=== PATIENT | male | born 1965 | race Caucasian/White ===

== ENCOUNTER 2021-01-08 14:57 | Emergency (ER) | payer OTHER ==
[2021-01-08 16:57] LABS: Absolute Lymphocytes (CBC) 1.7 K/uL (0.7-4.9); Basophils % 0.8 % (0-1.3); Hematocrit 42.6 % (39.6-49.0); Lymphocytes % 32.7 % (15.3-44.8); RBC Red Blood Cell Count 4.38 M/uL (4.33-5.43)
[2021-01-08 17:01] LABS: Protime INR 1.01
[2021-01-08 17:09] LABS: ALT/SGPT 34 U/L (12-78); AST/SGOT 27 U/L (15-37); Albumin 3.6 g/dL (3.4-5.0); Alkaline Phosphatase 55 U/L (45-117); BUN Blood Urea Nitrogen 12 mg/dL (7-18); Bicarbonate 24 mmol/L (21-32); Bilirubin Direct 0.2 mg/dL (0-0.2); Bilirubin Total 0.7 mg/dL (0.2-1.0); Ferritin 843.3 ng/mL (26-388); Glucose Level 76 mg/dL (74-106); Potassium 4.1 mmol/L (3.5-5.1); Protein, Total 7.9 g/dL (6.4-8.2); Sodium Level 134 mmol/L (136-145); Troponin (Emerg Dept Use Only) < 0.02 ng/mL (0.0-0.045)
--- NOTE | 2021-01-08 17:13 | RAD REPORT ---
EXAM DESCRIPTION: RAD - Chest Single View - 01/08/2021 4:44 pm CLINICAL HISTORY: DYSPNEA COMPARISON: No comparisons FINDINGS: Lines: None. Lungs: No evidence of edema or pneumonia. Pleural: No significant pleural effusions or pneumothorax. Cardiac: The heart size is within normal limits. Bones: No acute fractures. Other: IMPRESSION: No acute cardiopulmonary disease.
--- NOTE | 2021-01-08 17:58 | EDPHYS ---
Physician Documentation [facility] Name: Herman Khan Age: 55 yrs Sex: Male : 1965 Arrival Date: 01/08/2021 Time: 14:59 Bed 16 Private MD: ED Physician Bridger Goodwin HPI: 01/08 17:50 This 55 yrs old Male presents to ER via Ambulatory with complaints of jr8 Breathing Difficulty, Dizziness. 17:50 This is a 55-year-old male patient that presented to the emergency room for worsening jr8 of cough and difficulty breathing. Stated that it started about 5 days ago and was put on Zithromax. Since then has not felt any better and if anything has felt worse. Denies fevers, body aches, chills.. Historical: - Allergies: 15:12 Codeine; tw2 - Home Meds: 15:12 None [Active]; tw2 - PMHx: 15:12 None; tw2 - PSHx: 15:12 Hemorrhoidectomy; melanoma cyst removed; tw2 - Immunization history:: Adult Immunizations Client reports having NOT received the Covid vaccine. - Social history:: Smoking status: Patient reports the use of cigarette tobacco products, smokes two packs cigarettes per day. ROS: 17:50 Eyes: Negative for injury, pain, redness, and discharge, ENT: Negative for injury, jr8 pain, and discharge, Neck: Negative for injury, pain, and swelling, Cardiovascular: Negative for chest pain, palpitations, and edema, Abdomen/GI: Negative for abdominal pain, nausea, vomiting, diarrhea, and constipation, Back: Negative for injury and pain, MS/Extremity: Negative for injury and deformity, Skin: Negative for injury, rash, and discoloration, Neuro: Negative for headache, weakness, numbness, tingling, and seizure. 17:50 Respiratory: Positive for cough, shortness of breath, wheezing. Exam: 17:54 Eyes: Pupils equal round and reactive to light, extra-ocular motions intact. Lids and jr8 lashes normal. Conjunctiva and sclera are non-icteric and not injected. Cornea within normal limits. Periorbital areas with no swelling, redness, or edema. ENT: Nares patent. No nasal discharge, no septal abnormalities noted. Tympanic membranes are normal and external auditory canals are clear. Oropharynx with no redness, swelling, or masses, exudates, or evidence of obstruction, uvula midline. Mucous membranes moist. Neck: Trachea midline, no thyromegaly or masses palpated, and no cervical lymphadenopathy. Supple, full range of motion without nuchal rigidity, or vertebral point tenderness. No Meningismus. Cardiovascular: Regular rate and rhythm with a normal S1 and S2. No gallops, murmurs, or rubs. Normal PMI, no JVD. No pulse deficits. Abdomen/GI: Soft, non-tender, with normal bowel sounds. No distension or tympany. No guarding or rebound. No evidence of tenderness throughout. Back: No spinal tenderness. No costovertebral tenderness. Full range of motion. Skin: Warm, dry with normal turgor. Normal color with no rashes, no lesions, and no evidence of cellulitis. MS/ Extremity: Pulses equal, no cyanosis. Neurovascular intact. Full, normal range of motion. Neuro: Awake and alert, GCS 15, oriented to person, place, time, and situation. Cranial nerves II-XII grossly intact. Motor strength 5/5 in all extremities. Sensory grossly intact. Cerebellar exam normal. Normal gait. 17:54 Respiratory: the patient does not display signs of respiratory distress, Respirations: normal, Breath sounds: rales, that are mild, are located in both bases, wheezing: expiratory that is mild, is heard in the left posterior lower lobe. Vital Signs: 15:09 BP 114 / 95; Pulse 81; Resp 19; Temp 98.4(O); Pulse Ox 97% on R/A; Weight 72.57 kg (R); tw2 Height 5 ft. 9 in. (175.26 cm); 16:30 BP 101 / 64; Pulse 74; Resp 20; Temp 97.4(TE); Pulse Ox 94% on R/A; kh1 16:30 BP 104 / 62; Pulse 72; Resp 20; Pulse Ox 96% on R/A; kh1 15:09 Body Mass Index 23.63 (72.57 kg, 175.26 cm) tw2 MDM: 16:00 Patient medically screened. [facility] 17:54 Data reviewed: vital signs, nurses notes, lab test result(s), EKG, radiologic studies, jr8 plain films. Data interpreted: Pulse oximetry: on room air is 96 %. Interpretation: normal. Counseling: I had a detailed discussion with the patient and/or guardian regarding: the historical points, exam findings, and any diagnostic results supporting the discharge/admit diagnosis, lab results, radiology results, the need for outpatient follow up, a family practitioner, to return to the emergency department if symptoms worsen or persist or if there are any questions or concerns that arise at home. 17:55 ED course: Patient hemodynamically stable. Normal oxygen saturation on room air. Labs jr8 consistent with Covid along with having a positive PCR noted. No respiratory distress at this time. Patient did have some wheezing with by basilar rales. As such we will put him on steroids secondary to the wheezing along with a puffer. Needs to have close observation at home to ensure that his respiratory status remains stable. Advised pulse oximetry use [id number] if possible. Needs to come back if he were to feel worsening at any point in time. Patient not a candidate for monoclonal therapy at this time. Patient good with plan at this time.. 01/08 15:59 Order name: BMP; Complete Time: 17:29 01/08 15:59 Order name: C-Reactive Protein; Complete Time: 17:29 01/08 15:59 Order name: CBC with Diff; Complete Time: 17:29 01/08 15:59 Order name: D-Dimer; Complete Time: 17:29 01/08 15:59 Order name: Ferritin; Complete Time: 17:29 01/08 15:59 Order name: LFT's; Complete Time: 17:29 01/08 15:59 Order name: Lactate; Complete Time: 17:29 01/08 15:59 Order name: PT-INR; Complete Time: 17:29 01/08 15:59 Order name: Procalcitonin; Complete Time: 17:53 01/08 15:59 Order name: Ptt, Activated; Complete Time: 17:29 01/08 15:59 Order name: Troponin (emerg Dept Use Only); Complete Time: 17:29 01/08 15:59 Order name: CXR XRAY; Complete Time: 17:29 01/08 17:51 Order name: SARS-COV-2 RT PCR; Complete Time: 17:54 EDMS 01/08 15:59 Order name: EKG; Complete Time: 16:00 jr8 01/08 15:59 Order name: Cardiac monitoring; Complete Time: 16:37 jr8 01/08 15:59 Order name: Droplet/Contact Precautions; Complete Time: 16:38 jr8 01/08 15:59 Order name: EKG - Nurse/Tech; Complete Time: 17:05 jr8 01/08 15:59 Order name: IV Start; Complete Time: 16:38 jr8 01/08 15:59 Order name: Labs collected and sent; Complete Time: 16:38 jr8 01/08 15:59 Order name: O2 Per Protocol; Complete Time: 16:38 jr8 01/08 15:59 Order name: O2 Sat Monitoring; Complete Time: 16:38 jr8 01/08 15:59 Order name: Urine Dipstick-Ancillary (obtain specimen) jr8 Administered Medications: No medications were administered Disposition: 01/09 07:05 Co-signature as Attending Physician, Bridger Goodwin MD I agree with the assessment and sp3 plan of care. Disposition Summary: 01/08/21 17:58 Discharge Ordered Location: Home jr8 Problem: new jr8 Symptoms: have improved jr8 Condition: Stable jr8 Diagnosis - Pneumonia due to SARS-associated coronavirus jr8 - SARS-associated coronavirus as the cause of diseases classified elsewhere jr8 Followup: jr8 - With: Private Physician - When: 10 - 14 days - Reason: Recheck today's complaints, Continuance of care, Re-evaluation by your physician Discharge Instructions: - Discharge Summary Sheet jr8 - COVID-19 jr8 - Things to Know about the COVID-19 Pandemic - [facility] jr8 - 10 Things You Can Do to Manage Your COVID-19 Symptoms at Home - [facility] jr8 - COVID-19: Quarantine vs. Isolation - [facility] jr8 Forms: - Medication Reconciliation Form jr8 - Thank You Letter jr8 - Antibiotic Education jr8 - Prescription Opioid Use jr8 Prescriptions: - promethazine-DM 6.25-15 mg/5 mL Oral syrup - take 5 milliliter by ORAL route every 4-6 hours as needed, not to exceed 30 mL jr8 in 24 hours; 110 milliliter; Refills: 0, Product Selection Permitted - Prednisone 20 mg Oral Tablet - take 1 tablet by ORAL route once daily for 5 days; 5 tablet; Refills: 0, jr8 Product Selection Permitted - albuterol sulfate 90 mcg/actuation Inhalation HFA aerosol inhaler - inhale 2 puff by INHALATION route every 4-6 hours As needed; 1 Inhaler; jr8 Refills: 0, Product Selection Permitted Signatures: Dispatcher [employer] EDHoracio Deleon PA PA jr8 Jaki Putnam RN RN tw2 Bridger Goodwin MD MD sp3 Corrections: (The following items were deleted from the chart) 01/08 15:14 15:09 Social history: Smoking status: Patient reports the use of cigarette tobacco tw2 products, smokes three packs cigarettes per day. tw2 16:50 16:00 CORONAVIRUS+MR.LAB.BRZ ordered. EDIN EDIN
--- NOTE | 2021-01-08 17:58 | ER ---
Nurse's Notes [facility] Name: Herman Khan Age: 55 yrs Sex: Male : 1965 Arrival Date: 01/08/2021 Time: 14:59 Bed 16 Private MD: Diagnosis: Pneumonia due to SARS-associated coronavirus;SARS-associated coronavirus as the cause of diseases classified elsewhere Presentation: 01/08 15:09 Chief complaint: Patient states: i started feeling bad about 5 days ago with cough and tw2 congestion. i started a zpack 5 days ago. it has gotten worse and i feel like my chest hurts when i breathe. on each side of my back it hurts and sometimes i get dizzy. Coronavirus screen: congestion, cough unrelated to allergies, difficulty breathing, headache, loss of taste or smell, Client presents with at least one sign or symptom that may indicate coronavirus-19. Standard/surgical mask placed on the client. Provider contacted for isolation considerations. Ebola Screen: Patient denies travel to an Ebola-affected area in the 21 days before illness onset. Initial Sepsis Screen: Does the patient meet any 2 criteria? No. Patient's initial sepsis screen is negative. Does the patient have a suspected source of infection? No. Patient's initial sepsis screen is negative. Risk Assessment: Do you want to hurt yourself or someone else? Patient reports no desire to harm self or others. Onset of symptoms was January 08, 2021. 15:09 Method Of Arrival: Ambulatory tw2 15:09 Acuity: CHAPARRO 3 tw2 Triage Assessment: 15:13 General: Appears in no apparent distress. uncomfortable, Behavior is calm, cooperative, tw2 appropriate for age. Pain: Complains of pain in chest. Respiratory: Reports shortness of breath at rest on exertion cough that is non-productive, pain with respiration Onset: The symptoms/episode began/occurred 5 days ago, the patient has mild shortness of breath. Historical: - Allergies: 15:12 Codeine; tw2 - Home Meds: 15:12 None [Active]; tw2 - PMHx: 15:12 None; tw2 - PSHx: 15:12 Hemorrhoidectomy; melanoma cyst removed; tw2 - Immunization history:: Adult Immunizations Client reports having NOT received the Covid vaccine. - Social history:: Smoking status: Patient reports the use of cigarette tobacco products, smokes two packs cigarettes per day. Screenin:53 Abuse screen: Denies threats or abuse. Nutritional screening: No deficits noted. kh1 Tuberculosis screening: No symptoms or risk factors identified. Fall Risk None identified. IV access (20 points). Assessment: 17:53 General: Appears in no apparent distress. Behavior is calm, cooperative. Pain:. kh1 Cardiovascular: Reports chest pain, shortness of breath, Rhythm is sinus rhythm. 17:55 Respiratory: Airway is patent Respiratory effort is even, unlabored. kh1 Vital Signs: 15:09 BP 114 / 95; Pulse 81; Resp 19; Temp 98.4(O); Pulse Ox 97% on R/A; Weight 72.57 kg (R); tw2 Height 5 ft. 9 in. (175.26 cm); 16:30 BP 101 / 64; Pulse 74; Resp 20; Temp 97.4(TE); Pulse Ox 94% on R/A; kh1 16:30 BP 104 / 62; Pulse 72; Resp 20; Pulse Ox 96% on R/A; kh1 15:09 Body Mass Index 23.63 (72.57 kg, 175.26 cm) tw2 ED Course: 14:59 Patient arrived in ED. as 15:12 Triage completed. tw2 15:13 Arm band placed on. tw2 15:57 Horacio Drew PA is PHCP. jr8 15:57 Bridger Goodwin MD is Attending Physician. jr8 16:30 Inserted saline lock: 20 gauge in right antecubital area, using aseptic technique. kh1 16:37 Liberty Roberts is Primary Nurse. kh1 16:38 BMP Sent. kh1 16:38 C-Reactive Protein Sent. kh1 16:38 CBC with Diff Sent. kh1 16:38 D-Dimer Sent. kh1 16:38 Ferritin Sent. kh1 16:38 LFT's Sent. kh1 16:38 Lactate Sent. kh1 16:38 PT-INR Sent. kh1 16:38 Procalcitonin Sent. kh1 16:38 Ptt, Activated Sent. kh1 16:38 Troponin (emerg Dept Use Only) Sent. kh1 16:39 CXR XRAY Sent. kh1 16:44 CXR XRAY In Process Unspecified. EDMS 17:53 Patient has correct armband on for positive identification. Bed in low position. Call [facility] light in reach. Side rails up X2. 17:53 No provider procedures requiring assistance completed. 1 Administered Medications: No medications were administered Outcome: 17:58 Discharge ordered by MD. dang 18:32 Patient left the ED. iw Signatures: Dispatcher [employer] EDMS Janelle Thompson Irene, RN RN Horacio Drew PA PA jr8 Jaki Putnam RN RN tw2 Liberty Roberts [facility] Corrections: (The following items were deleted from the chart) 15:14 15:09 Social history: Smoking status: Patient reports the use of cigarette tobacco tw2 products, smokes three packs cigarettes per day. tw2 16:50 16:39 CORONAVIRUS+ drawn and sent. [facility] EDMS
[2021-01-08 18:46] VITALS: BP 104/62; TEMP 97.4; O2SAT 96
== END 2021-01-08 18:32 | disposition home or self-care (01) ==
LOC: ER 14:57
DX: U07.1 COVID-19 (principal); J12.82 Pneumonia due to coronavirus disease 2019; Z88.6 Allergy status to analgesic agent; F17.210 Nicotine dependence, cigarettes, uncomplicated
CPT/HCPCS: 93005 ×2; 85025; 80048; 36415; 85610; 85379; 80076; 83605; 85730; 84484; 82728; 84145; 86140; 71045; 99284; U0003